=== PATIENT | female | born 1975 | race Caucasian/White ===

== ENCOUNTER 2018-09-29 13:30 | Inpatient (IN) | payer OTHER ==
[~2018-09-29] VITALS: Ht 170.2 cm; Wt 108.9 kg
[2018-09-29 14:00] VITALS: BP 118/76
[2018-09-29] MEDS ORDERED: RINGERS SOLUTION,LACTATED 1,000 ML IV ONE ×2 (14:25→14:32)
[2018-09-29] MEDS ORDERED: OXYTOCIN 30 UNITS/LACT RINGERS 500 ML IV ONE (14:25)
[2018-09-29] MEDS ORDERED: LIDOCAINE/PF 1% 30 ML VIAL INJ PRN (14:30)
[2018-09-29] MEDS ORDERED: METOCLOPRAMIDE HCL 5 MG/ML 2 ML VIAL IVP PRN (14:30)
[2018-09-29] MEDS ORDERED: CITRIC ACID/SODIUM CITRATE 30 ML SOLUTION UDCUP PO PRN (14:30)
[2018-09-29 14:59] LABS: BASOPHILS % (AUTO) 0.4 % (0.0-2.0); HEMATOCRIT 33.8 % (36-46); HEMOGLOBIN 11.2 g/dL (12.0-16.0); LYMPHOCYTES # (AUTO) 1.5 K/uL (1.0-4.8); LYMPHOCYTES % (AUTO) 28.7 % (22.0-44.0); MEAN CORPUSCULAR HEMOGLOBIN 27.2 pg (26.0-34.0); MEAN CORPUSCULAR HGB CONC 33.1 G/dL (31.0-37.0); MEAN CORPUSCULAR VOLUME 82 fL (80-100); MONOCYTES # (AUTO) 0.3 K/uL (0.1-1.0); MONOCYTES % (AUTO) 6.6 % (2.0-9.0); NEUTROPHILS # (AUTO) 3.3 K/uL (1.8-7.7); NEUTROPHILS % (AUTO) 63.3 % (40.0-70.0); PLATELET COUNT (AUTO)-OB 168 K/uL (150-450); RED CELL DISTRIBUTION WIDTH 13.7 % (11.5-14.5)
[2018-09-29] MEDS ORDERED: PREN1TAB80 PO (15:41)
[2018-09-29] MEDS ORDERED: CALC-1038 PO (15:41)
[2018-09-29] MEDS ORDERED: DINOPROSTONE 10 MG VAGINAL SUPPOSITORY VG ONE (16:00)
[2018-09-29] MEDS: RINGERS SOLUTION,LACTATED 1,000 ML IV SCH ×2 (16:32→22:25)
[2018-09-30] MEDS ORDERED: RINGERS SOLUTION,LACTATED 1,000 ML IV SCH (05:10)
[2018-09-30] MEDS ORDERED: MISOPROSTOL 25 MCG TABLET VG ONE (05:15)
[2018-09-30] MEDS: MISOPROSTOL 50 MCG TABLET PO SCH ×4 (09:28→22:17)
[2018-09-30] MEDS: RINGERS SOLUTION,LACTATED 1,000 ML IV SCH ×3 (13:53→22:25)
[2018-09-30] MEDS: FentaNYL CITRATE-PF 100 MCG/2 ML VIAL IVP PRN ×2 (23:09→23:18)
[2018-10-01] MEDS: FentaNYL CITRATE-PF 100 MCG/2 ML VIAL IVP PRN ×2 (00:39→00:47)
[2018-10-01] MEDS: MISOPROSTOL 50 MCG TABLET PO SCH (02:15)
[2018-10-01] MEDS ORDERED: ROPIVACAINE HCL/PF 0.2% 100 ML ED ONE (02:34)
[2018-10-01] MEDS ORDERED: ROPIVACAINE HCL/PF 0.2% 100 ML ED PRN (03:04)
[2018-10-01] MEDS ORDERED: ONDANSETRON HCL 4 MG/2 ML VIAL IVP PRN (03:15)
[2018-10-01] MEDS ORDERED: DiphenhydrAMINE HCL 50 MG/ML VIAL IVP PRN (03:15)
[2018-10-01] MEDS ORDERED: NALBUPHINE HCL 10 MG/ML VIAL IVP PRN (03:15)
[2018-10-01] MEDS ORDERED: BUPIVACAINE HCL/PF 0.5% 10 ML VIAL ONE (03:49)
[2018-10-01] MEDS ORDERED: LIDOCAINE/PF 2% 5 ML VIAL ONE (03:49)
[2018-10-01] MEDS ORDERED: OXYTOCIN 30 UNITS/LACT RINGERS 500 ML IV PRN (04:00)
[2018-10-01] MEDS: RINGERS SOLUTION,LACTATED 1,000 ML IV SCH (06:00)
[2018-10-01] MEDS ORDERED: AMPICILLIN SODIUM 2 GM/NS 100 ML IV ONE (11:15)
[2018-10-01] MEDS ORDERED: METHYLERGONOVINE MALEATE 0.2 MG/ML VIAL IM PRN (14:45)
[2018-10-01] MEDS ORDERED: MISOPROSTOL 100 MCG TABLET PR ONE (14:45)
[2018-10-01] MEDS ORDERED: OXYTOCIN 30 UNITS/LACT RINGERS 500 ML IV ONE (14:51)
[2018-10-01] MEDS ORDERED: BENZOCAINE 20%/MENTHOL 56 GM SPRAY CANISTER TP PRN (15:00)
[2018-10-01] MEDS ORDERED: LIDOCAINE/PF 1% 30 ML VIAL INJ PRN (15:00)
[2018-10-01] MEDS ORDERED: *CLINICAL-GENTAMICIN DOSING CLINICAL ONE (15:00)
[2018-10-01] MEDS ORDERED: LANOLIN 7 GM OINTMENT TP PRN (15:00)
[2018-10-01] MEDS ORDERED: GLYCERIN/WITCH HAZEL LEAF 40 PADS JAR TP PRN (15:00)
[2018-10-01] MEDS ORDERED: OxyCODONE HCL/ACETAMINOPHEN 5-325 MG TABLET PO PRN ×2 (15:00)
[2018-10-01] MEDS: OXYTOCIN 20 UNITS/LACT RINGERS 1,000 ML IV SCH ×2 (15:01→21:31)
[2018-10-01] MEDS ORDERED: CeFAZolin 2 GM/DEXTROSE 50 ML IV ONE (15:06)
[2018-10-01] MEDS: CeFAZolin 2 GM/DEXTROSE 50 ML IV SCH ×2 (15:19→23:07)
[2018-10-01] MEDS: GENTAMICIN SULFATE 180 MG in DEXTROSE 5%-WATER 50 ML IV SCH ×2 (15:52→23:55)
[2018-10-01] MEDS: IBUPROFEN 800 MG TABLET PO PRN (21:26)
[2018-10-01] MEDS: MAGNESIUM HYDROXIDE SUSPENSION 30 ML UDCUP PO PRN (21:26)
[2018-10-02 05:24] LABS: BASOPHILS % (AUTO) 0.2 % (0.0-2.0); EOSINOPHILS % (AUTO) 0.8 % (1.0-6.0); HEMATOCRIT 28.5 % (36-46); HEMOGLOBIN 9.4 g/dL (12.0-16.0); MEAN CORPUSCULAR HEMOGLOBIN 27.6 pg (26.0-34.0); MEAN CORPUSCULAR HGB CONC 33.1 G/dL (31.0-37.0); MEAN CORPUSCULAR VOLUME 83 fL (80-100); MONOCYTES # (AUTO) 0.7 K/uL (0.1-1.0); MONOCYTES % (AUTO) 5.9 % (2.0-9.0); NEUTROPHILS # (AUTO) 9.5 K/uL (1.8-7.7); NEUTROPHILS % (AUTO) 77.1 % (40.0-70.0); PLATELET COUNT (AUTO)-OB 143 K/uL (150-450); RED BLOOD CELL COUNT(AUTO) 3.42 MIL/uL (4.00-5.20); RED CELL DISTRIBUTION WIDTH 13.8 % (11.5-14.5)
[2018-10-02] MEDS: CeFAZolin 2 GM/DEXTROSE 50 ML IV SCH (07:26)
[2018-10-02] MEDS: GENTAMICIN SULFATE 180 MG in DEXTROSE 5%-WATER 50 ML IV SCH (08:04)
[2018-10-02] MEDS: MAGNESIUM HYDROXIDE SUSPENSION 30 ML UDCUP PO PRN (08:04)
[2018-10-02] MEDS: IBUPROFEN 800 MG TABLET PO PRN (08:04)
[2018-10-02] MEDS ORDERED: IBUP-2070 PO (11:03)
[2018-10-02] MEDS ORDERED: DSS100 PO (11:05)
== END 2018-10-02 15:30 | disposition home or self-care (01) | DRG 807 ==
LOC: 4S 13:30 → OBSVTOIN 13:30
PROVIDERS: ADMIT Obstetrics & Gynecology; ATTEND Obstetrics & Gynecology
PROC: 10D07Z6 Extraction of Products of Conception, Vacuum, Via Natural or Artificial Opening (ICD-10-PCS; principal; 2018-10-01)
PROC: 0W8NXZZ Division of Female Perineum, External Approach (ICD-10-PCS; 2018-10-01)
PROC: 3E0R3BZ Introduction of Anesthetic Agent into Spinal Canal, Percutaneous Approach (ICD-10-PCS; 2018-10-01)
PROC: 00HU33Z Insertion of Infusion Device into Spinal Canal, Percutaneous Approach (ICD-10-PCS; 2018-10-01)
DX: O80 Encounter for full-term uncomplicated delivery (principal); Z37.0 Single live birth; Z3A.39 39 weeks gestation of pregnancy
CPT/HCPCS: 86850; 86900; 86901; J0290; J0690; J1580; J2210; J2590; J2795; J3010; J3490; J7060; J7120